=== PATIENT | male | born 2000 | race Hispanic/Latino ===

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

== ENCOUNTER 2021-11-30 13:21 | Outpatient (CLI) | payer OTHER, SELFPAY | END 2021-11-30 13:22 | disposition home or self-care (01) | LOC: MADRAD 13:21 | PROVIDERS: ATTEND Registered Nurse | DX: M54.50 Low back pain, unspecified (principal) | CPT/HCPCS: 72220 ==